=== PATIENT | female | born 1995 | race Caucasian/White ===

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

== ENCOUNTER 2018-12-19 03:15 | Emergency (ER) | payer OTHER ==
[2018-12-19 04:02] VITALS: BP 104/62; PULSE 80; TEMP 98.2; BMI 25.4
[2018-12-19] MEDS ORDERED: TETRACAINE 0.5% HCL 0.6ML DROPPER.BOTTLE OS ONE (05:29)
[2018-12-19] MEDS ORDERED: FLUORESCEIN NA 1 EA STRIP OS ONE (05:32)
[2018-12-19] MEDS ORDERED: TETRACAINE 0.5% OPHTH SOLN 2 ML BOTTLE ONE (05:43)
--- NOTE | 2018-12-19 06:18 | PDOC ---
History of Present Illness - General Chief Complaint: Eye Problem Stated Complaint: FOREIGN BODY,EYE Time Seen by Provider: 12/19/18 05:10 History Source: Patient Exam Limitations: No Limitations - History of Present Illness Initial Comments: 23YOF contact wearer without PMH who p/w foreign body sensation in her left eye for the past few hours since attempting to remove her left contact lens. She states she could not find the contact on the left side and believes it is still in. She has been rubbing the eye and attempting to remove it. She expresses concern that she has long fake nails and they have been getting in the way of her attempting to remove her contact. She notes redness to the left side of the left eye but denies any vision changes, states she is UTD on tetanus vaccination. Past History - Past Medical History Allergies/Adverse Reactions: Allergies Allergy/AdvReac Type Severity Reaction Status Date / Time No Known Allergies Allergy Verified 12/19/18 04:02 Home Medications: Ambulatory Orders levETIRAcetam [Keppra -] 500 mg PO BID 08/04/16 Asthma: Yes Seizures: Yes - Immunization History Immunization Up to Date: Yes - Psycho Social/Smoking Cessation Hx Smoking Status: No Smoking History: Never smoked Have you smoked in the past 12 months: No Number of Cigarettes Smoked Daily: 0 Hx Alcohol Use: Yes Drug/Substance Use Hx: No Substance Use Type: None Review of Systems - Review of Systems Able to Perform ROS?: Yes Comments:: GEN: no fever, chills, night sweats, generalized weakness, malaise, or unintentional weight change HEENT: eye irritation/redness/FB sensation, no ear pain, congestion, sore throat , rhinorrhea, nosebleed, or vision change CV: no chest pain, palpitations, lightheadedness, syncope, edema, or exercise intolerance RESP: no cough, wheezing, or SOB GI: no abdominal pain, nausea, vomiting, diarrhea, constipation, appetite change , or white/black/bloody stool : no dysuria, hematuria, frequency, incontinence, retention, pruritis, bleeding, or discharge MSK: no muscle weakness or pain, no muscle wasting, no joint swelling or pain NEURO: no headache, seizure, vertigo, imbalance, numbness, tingling, focal weakness, or difficulty walking/talking PSYCH: no insomnia, behavior change, SI, HI, or substance use SKIN: no prutitis, excessive dryness, jaundice, rash, cuts, or unexplained bruises ROS otherwise negative except as noted in HPI *Physical Exam - Vital Signs Last Vital Signs Temp Pulse Resp BP Pulse Ox 98.2 F 80 15 104/62 99 12/19/18 03:15 12/19/18 03:15 12/19/18 03:15 12/19/18 03:15 12/19/18 03:15 - Physical Exam Comments: GENERAL: well-appearing, A/Ox4, no distress, answers questions appropriately, accompanied by mother HENT: moist mucous membranes EYES: b/l eyes with PERRLA and EOMI, 20/10 vision bilaterally without corrective lenses or contact lenses, right eye normal without scleral injection of subconjunctival hemorrhage and without contact lens, left eye without contact lens visualized grossly, left lateral mild scleral injection, with tetracaine+fluorescein+black light exam there is no corneal abrasion visualized , lids elevated/retracted without e/o contact lens or other foreign body, otherwise normal exam NECK/BACK: no midline ttp, no spinal stepoff or deformity, no hematoma, full ROM , neck supple CARDIOVASCULAR: regular rate/rhythm, normal S1S2, no MGR, strong peripheral pulses, capillary refill <2 seconds, extremities wwp, no edema LUNGS/RESPIRATORY: no respiratory distress, CTAB GI/ABDOMEN: symmetric [id number], normoactive BS, soft, no ttp, no midline pulsatile masses : no CVA tenderness EXTREMITIES: no muscle atrophy, no acute deformity SKIN: warm and dry, no pallor, no jaundice, no rash, no bruising, no skin breakdown, no cuts, no lesions NEUROLOGICAL: GCS 15, CN II-XII grossly intact, 5/5 strength proximally and distally, no facial droop Medical Decision Making - Medical Decision Making 23YOF p/w left eye irritation and FB sensation, believes she left a contact lens in the left eye.. Initial Vital Signs Temp Pulse Resp BP Pulse Ox 98.2 F 80 15 104/62 99 12/19/18 03:15 12/19/18 03:15 12/19/18 03:15 12/19/18 03:15 12/19/18 03:15 Exam: As noted in Physical Exam section. Visual acuity: 20/10 bilaterally without correction DDX IBNLT: corneal abrasion, eye FB, much less likely (as there are no red flags in history & physical): chemical irritation, corneal ulceration, glaucoma (open vs. closed angle), preseptal/septal cellulitis, uveitis (e.g. Crohns or sarcoid), malignancy, conjuncitivits (viral vs. bacterial vs. reactive/contact) , hordeolum, chalazion, blepharitis, etc. [place] ordered: tetracaine drops, fluorescein strip Tetracaine and fluorescein applied. Fluorescein Exam: As noted in Physical Exam section. tDaP updated and antibiotic drops given. DISCHARGE The Pt has significant relief with tetracaine and feels comfortable going home. Workup is not concerning for emergency-level pathology at this time. They are appropriate for discharge with close outpatient follow up. Referral information given for florist and they will follow up as directed later today. Specific return precautions are discussed and they will come back to the ER if necessary. Discharge - Discharge Information Problems reviewed: Yes Clinical Impression/Diagnosis: Left eye pain Condition: Stable Disposition: HOME - Admission No - Follow up/Referral Referrals: Alex Caldwell MD [Staff Physician] - - Patient Discharge Instructions Additional Instructions: You were seen in the ER for left eye discomfort and foreign body sensation. We did a thorough exam with numbing drops and dye, and we did not see a contact in your eye, or any scratches to your eye. There is irritation, and you need to avoid rubbing or scratching the eye. Follow up with an florist today. We are giving you referral information for one, so call their office, tell them you were seen in the ER, and tell them you need same-day follow-up for a thorough eye exam. If you want to use an florist other than the one we are referring you to, that is fine. Just make sure it is a medical doctor florist, not an documentum consultant. Come back to the ER if you have any new or worsening symptoms, especially blindness, worsening pain, eye bleeding or discharge, or other symptoms. - Post Discharge Activity Work/Back to School Note: Back to Work
--- NOTE | 2018-12-19 08:23 | PDOC ---
Attending Attestation - Resident Resident Name: Maryjane Vincent - ED Attending Attestation I have performed the following: I have examined & evaluated the patient, The case was reviewed & discussed with the resident, I agree w/resident's findings & plan, Exceptions are as noted - HPI HPI: 12/19/18 08:22 23F with L eye irritation after losing a contact lens. No vision changes, headache - Physicial Exam PE: 12/19/18 08:22 PERRL, EOMI L conjunctival injection No abrasion on flourescein exam - Medical Decision Making 12/19/18 08:23 FB irritation of eye could not find contact No signs of corneal abrasion Pt will f/u today with ophtho
== END 2018-12-19 06:46 | disposition home or self-care (01) ==
LOC: JER 03:15
DX: H57.12 Ocular pain, left eye (principal); J45.909 Unspecified asthma, uncomplicated; R56.9 Unspecified convulsions
CPT/HCPCS: 99281-25

== ENCOUNTER 2022-03-21 16:41 | Emergency (ER) | payer BC ==
[2022-03-21 16:47] VITALS: TEMP 98.4; BMI 28.9
[2022-03-21] MEDS ORDERED: SODIUM CHLORIDE 0.9% 500 ML INFUS.BAG IV ONE (17:54)
[2022-03-21] MEDS ORDERED: ACETAMINOPHEN 1000 MG/100 ML BAG IVPB ONE (17:54)
[2022-03-21] MEDS ORDERED: ACETAMINOPHEN INJECTION 100 ML IVPB ONE (18:02)
[2022-03-21 19:10] LABS: BASO % 0.7 % (0-2.0); EOS % 3.4 % (0-4.5); HEMOGLOBIN 12.7 GM/dL (10.7-15.3); MCH 30.6 pg (25.7-33.7); MCHC 33.3 g/dl (32.0-36.0); MEAN CELL VOLUME 91.9 fl (80-96); MONO % 7.3 % (3.8-10.2); NEUT % 49.6 % (42.8-82.8); PLATELET COUNT 383 10^3/uL (134-434); RBC 4.14 M/mm3 (3.60-5.2); RDW 13.8 % (11.6-15.6)
[2022-03-21 19:14] LABS: EPI CELLS 15 /uL (0-25.1); HCG,QUALITATIVE URINE Negative; HYALINE CASTS 0 /uL (0-3.1); URINE APPEARANCE CLEAR; URINE BACTERIA 249 /uL (0-1359); URINE BILIRUBIN NEGATIVE (NEGATIVE); URINE COLOR YELLOW; URINE GLUCOSE (UA) NEGATIVE (NEGATIVE); URINE KETONE NEGATIVE (NEGATIVE); URINE LEUK ESTERASE 2+ (NEGATIVE); URINE NITRITE NEGATIVE (NEGATIVE); URINE PROTEIN NEGATIVE (NEGATIVE); URINE RBC 13 /uL (0-23.9); URINE UROBILINOGEN 0.2 mg/dL (0.2-1.0); URINE WBC 22 /uL (0-25.8)
[2022-03-21 19:18] LABS: INR 1.03 (0.83-1.09); PROTHROMBIN TIME (PATIENT) 11.8 SEC (9.7-13.0)
[2022-03-21 19:33] LABS: CALCIUM 9.4 mg/dL (8.5-10.1)
[2022-03-21 19:34] LABS: ALBUMIN 4.1 g/dl (3.4-5.0); BLOOD UREA NITROGEN 10.9 mg/dL (7-18)
[2022-03-21 19:37] LABS: CREATININE 0.7 mg/dL (0.55-1.3)
[2022-03-21 19:39] LABS: TOT PROT 7.5 g/dl (6.4-8.2)
[2022-03-21 19:42] LABS: BILIRUBIN,TOTAL 0.3 mg/dL (0.2-1)
[2022-03-21 20:18] LABS: ERYTHROCYTE SEDIMENTATION RATE 6 mm/hr (0-20)
[2022-03-21 22:31] VITALS: BP 108/56; PULSE 81; RESP 22
== END 2022-03-22 00:48 | disposition home or self-care (01) ==
LOC: JER 16:41
PROC: 3E0333Z Introduction of Anti-inflammatory into Peripheral Vein, Percutaneous Approach (ICD-10-PCS; principal; 2022-03-21)
DX: N83.291 Other ovarian cyst, right side (principal); R10.31 Right lower quadrant pain
CPT/HCPCS: 36415; 74177-TC; 76830-TC; 80053; 81003; 84703; 85025; 85610; 85651; 86140; 86850; 86900; 86901; 87086; 99285-25; Q9967